=== PATIENT | male | born 2000 | race Caucasian/White ===

== ENCOUNTER 2023-06-05 15:10 | Emergency (ER) | payer OTHER ==
[~2023-06-05] VITALS: Ht 165.1 cm; Wt 65.8 kg
[2023-06-05 15:26] VITALS: BP 135/84; PULSE 76; RESP 17; TEMP 99.1; O2SAT 100
[2023-06-05] MEDS ORDERED: KETOROLAC 30 MG/ML VIAL IM ONE (16:45)
[2023-06-05] MEDS ORDERED: NACL 0.9% 1,000 ML IV ONE (17:00)
[2023-06-05] MEDS ORDERED: MORPHINE SULFATE 4 MG/ML SYR IM ONE (17:00)
[2023-06-05] MEDS ORDERED: MORPHINE SULFATE 4 MG/ML SYR IV ONE (17:50)
[2023-06-05] MEDS ORDERED: ONDANSETRON 4 MG/2 ML VIAL IVP ONE (17:50)
[2023-06-05] MEDS ORDERED: IBUP-2213 PO (19:20)
[2023-06-05] MEDS ORDERED: ACET-2619 PO (19:20)
[2023-06-05 19:37] VITALS: BP 135/84; PULSE 76; RESP 17; TEMP 99.1; O2SAT 100
== END 2023-06-05 19:37 | disposition home or self-care (01) ==
LOC: MED 15:10
DX: M25.551 Pain in right hip (principal); Z79.899 Other long term (current) drug therapy
CPT/HCPCS: 71260; 72220; 73502; 74177; 96361; 96374; 96375; 99285; J7030; Q9967; J1885; J2270